=== PATIENT | male | born 1990 ===

== ENCOUNTER 2018-04-28 13:37 | Emergency (ER) | payer OTHER ==
[2018-04-28] MEDS ORDERED: Epinephrine /Lidocaine HCL 1:100,000/2% 30 ml INJ ONE ×2 (14:27→14:45)
--- NOTE | 2018-04-28 15:07 | C.PDOC ---
History Of Present Illness 27 y/o male presents to the ER complaining of swelling and tenderness below the left breast which has been present for the past 2+ weeks. Patient states that he had a similar episode last year and he had an I&D. Patient reports that the abscess has occurred in the same location again. He notes that he took Motrin [employer]. Denies having fever and chills. Of note, patient is not UTD with tetanus vaccination though declines it. Time Seen by Provider: 04/28/18 14:25 Chief Complaint (Nursing): Abnormal Skin Integrity History Per: Patient History/Exam Limitations: no limitations Onset/Duration Of Symptoms: Days Current Symptoms Are (Timing): Still Present Past Medical History Reviewed: Historical Data, Nursing Documentation, Vital Signs Vital Signs: Last Vital Signs Temp 98.0 F 04/28/18 13:52 Pulse 87 04/28/18 13:52 Resp 20 04/28/18 13:52 BP 140/85 04/28/18 13:52 Pulse Ox 98 04/28/18 13:52 - Medical History PMH: No Chronic Diseases Surgical History: No Surg Hx Family History: States: No Known Family Hx - Social History Hx Alcohol Use: Yes Hx Substance Use: No Review Of Systems Except As Marked, All Systems Reviewed And Found Negative. Constitutional: Negative for: Fever, Chills Skin: Positive for: Other (abscess below left breast) Physical Exam - Physical Exam Appears: Non-toxic, No Acute Distress Skin: Warm, Dry, Other (4x2 cm area of erythema and induration below left breast with central fluctuance) Head: Atraumatic, Normacephalic Eye(s): bilateral: Normal Inspection, EOMI Nose: Normal Oral Mucosa: Moist Neck: Supple Chest: Symmetrical Cardiovascular: Rhythm Regular Respiratory: Normal Breath Sounds, No Accessory Muscle Use Extremity: Normal ROM Neurological/Psych: Oriented x3, Normal Speech ED Course And Treatment O2 Sat by Pulse Oximetry: 98 (RA) Pulse Ox Interpretation: Normal Progress Note: Patient refused to have tetanus vaccination administered. I&D of abscess was performed. Patient tolerated well. Patient has been instructed about wound care care and told to follow up for wound check in 2 days. - Incision & Drainage Of Abscess Anesthesia: Lidocaine 2%, With Epi Prep Used: Sterile Water, Betadine Procedure: Incised W/Scalpel Blade#: (11), Drained Pus, Irrigated Cavity W/Saline, Probed To Break Up Loculations, Packed W/Gauze, Cultures Obtained And Sent To Lab Disposition - Disposition Disposition: HOME/ ROUTINE Disposition Time: 15:06 Condition: STABLE Additional Instructions: Wound check in 2 days. 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 - Scribe Statement The provider has reviewed the documentation as recorded by the Shannon Wynne Provider Attestation All medical record entries made by the Greggibchris were at my direction and personally dictated by me. I have reviewed the chart and agree that the record accurately reflects my personal performance of the history, physical exam, medical decision making, and the department course for this patient. I have also personally directed, reviewed, and agree with the discharge instructions and disposition.
[2018-04-28 15:37] VITALS: BP 150/90; PULSE 83; RESP 18; TEMP 99
[2018-04-28 19:56] VITALS: O2SAT 98
== END 2018-04-28 15:10 | disposition home or self-care (01) ==
LOC: C.ER 13:37
DX: L02.213 Cutaneous abscess of chest wall (principal)

== ENCOUNTER 2018-04-30 11:14 | Emergency (ER) | payer OTHER ==
[2018-04-30 11:22] VITALS: BMI 50.9
[2018-04-30 11:24] VITALS: BP 147/96; PULSE 92; RESP 18; TEMP 98.5; O2SAT 99
--- NOTE | 2018-04-30 11:53 | C.PDOC ---
History Of Present Illness 27-year-old male presents to the ED for packing removal from left chest wound. States he feels well, and has no pain. Patient reports taking his antibiotics as prescribed. Otherwise he denies any fever, chills, redness, increased warmth, or drainage from site. Time Seen by Provider: 04/30/18 11:33 Chief Complaint (Nursing): Wound Check History Per: Patient History/Exam Limitations: no limitations Onset/Duration Of Symptoms: Days Ago Current Symptoms Are (Timing): Better Location Of Injury: Left: Chest Past Medical History Reviewed: Historical Data, Nursing Documentation, Vital Signs Vital Signs: Last Vital Signs Temp 98.5 F 04/30/18 11:22 Pulse 92 H 04/30/18 11:22 Resp 18 04/30/18 11:22 BP 147/96 H 04/30/18 11:22 Pulse Ox 99 04/30/18 11:22 Family History: States: No Known Family Hx - Social History Hx Tobacco Use: No Hx Alcohol Use: Yes Hx Substance Use: No Review Of Systems Except As Marked, All Systems Reviewed And Found Negative. Constitutional: Negative for: Fever, Chills Cardiovascular: Negative for: Chest Pain Respiratory: Negative for: Shortness of Breath Skin: Positive for: Other (packed wound under left breast). Negative for: Rash Physical Exam - Physical Exam Appears: Well, Non-toxic, No Acute Distress Skin: Warm, Dry, No Rash Head: Atraumatic, Normacephalic Eye(s): bilateral: Normal Inspection Oral Mucosa: Moist Neck: Normal ROM Chest: No Tenderness, Other (Just below the left breast, incisional wound with packing in place, no surrounding erythema or tenderness) Cardiovascular: Rhythm Regular, No Murmur Respiratory: Normal Breath Sounds, No Rales, No Rhonchi, No Wheezing Extremity: Bilateral: Atraumatic, Normal Color And Temperature, Normal ROM Pulses: Left Radial: Normal, Right Radial: Normal Neurological/Psych: Oriented x3, Normal Speech ED Course And Treatment O2 Sat by Pulse Oximetry: 99 (room air) Pulse Ox Interpretation: Normal Medical Decision Making Medical Decision Making: Impression: Wound check Plan: Packing removed. Wound cleaned. New sterile dressing applied. Patient is stable for discharge home. Educated to continue with wound care and complete antibiotics. 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 - Scribe Statement The provider has reviewed the documentation as recorded by the Scribe (Rhonda Biswas) All medical record entries made by the Scribe were at my direction and personally dictated by me. I have reviewed the chart and agree that the record accurately reflects my personal performance of the history, physical exam, medical decision making, and the department course for this patient. I have also personally directed, reviewed, and agree with the discharge instructions and disposition.
== END 2018-04-30 12:00 | disposition home or self-care (01) ==
LOC: C.ER 11:14
DX: Z48.00 Encounter for change or removal of nonsurgical wound dressing (principal)

== ENCOUNTER → 2018-10-15 | Outpatient (CLI) | payer OTHER | LOC: C.LAB 09:57 | DX: E66.9 Obesity, unspecified (principal); I10 Essential (primary) hypertension; R53.83 Other fatigue; R06.83 Snoring ==